=== PATIENT | male | born 1925 | race Caucasian/White ===

== ENCOUNTER → 2017-03-18 | Outpatient (CLI) | payer MEDICARE, BC ==
--- NOTE | 2017-03-18 11:59 | CT ---
EXAMINATION TYPE: CT chest wo con DATE OF EXAM: 03/18/2017 COMPARISON: Radiograph 03/05/2017 HISTORY: 89-year-old male Cough, Shortness of breath TECHNIQUE: Contiguous axial scanning of the chest without IV contrast. Coronal and sagittal reconstru ctions performed. CT DLP: 203.40 mGycm Automated exposure control for dose reduction was used. FINDINGS: The heart is upper limits of size without pericardial effusion. Dense mitral annular calcifications a re present. Coronary vessel calcifications are present in remarkable for coronary artery disease. 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 Large caliber to the main right and left pulmonary arteries 3.3 and 2.7 cm, respectively, suggesting underlying pulmonary arterial hypertension. No thoracic lymphadenopathy by CT size criteria. Some calcified mediastinal lymph nodes suggest prior granulomatous disease. There are small pleural effusions with some interstitial changes in the lower lungs and to a greater extent within the upper lungs with hazy groundglass densities as well. Mild underlying centrilobular emphysema particularly in the upper lungs. Visualized upper abdomen shows cholelithiasis and moderate atherosclerotic calcifications in the aort a. Bones: No osseous destructive process. IMPRESSION: 1. 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 1. BORDERLINE HEART SIZE, SMALL EFFUSIONS, AND INTERSTITIAL DENSITIES IN THE UPPER AND LOWER LUNGS. C ORRELATE TO EXCLUDE MILD CHF. 3. HAZY DENSITIES ARE SLIGHTLY MORE CONFLUENT IN CERTAIN REGIONS SUCH THE RIGHT UPPER LOBE AND LEFT BASE, CORRELATE TO EXCLUDE THE POSSIBILITY OF SUPERIMPOSED PNEUMONIA. 4. CHOLELITHIASIS.
== END | disposition home or self-care (01) ==
LOC: RADCTMAIN 10:59
PROVIDERS: ATTEND Internal Medicine
DX: J43.9 Emphysema, unspecified (principal); J98.4 Other disorders of lung; I27.21 Secondary pulmonary arterial hypertension
CPT/HCPCS: 71250

== ENCOUNTER → 2017-03-22 | Outpatient (CLI) | payer MEDICARE, BC ==
--- NOTE | 2017-03-22 10:07 | XR ---
EXAMINATION TYPE: XR chest 2V DATE OF EXAM: 03/22/2017 COMPARISON: CT 03/18/2017 HISTORY: 89-year-old male with cough and congestion TECHNIQUE: Frontal and lateral views FINDINGS: The heart is borderline enlarged. Aorta within normal limits. There is a staple line projecting along the anterior right lower lung from prior wedge resection. Some patchy opacity could represent scar o r atelectasis peripheral right upper mid lung. There is are trace effusions, left greater than right and patchy peripheral left basilar opacity. Hyperinflation with flattening of the hemidiaphragms. IMPRESSION: 1. COPD and prior wedge resection along the anterior lower right lung. 2. Borderline heart size with trace effusions. Correlate to exclude mild CHF. 3. Patchy atelectasis or infiltrate at the left base. Correlate for any infectious signs/symptoms.
== END | disposition home or self-care (01) ==
LOC: RADXRMAIN 09:32
PROVIDERS: ATTEND Internal Medicine Pulmonary Disease
DX: J44.9 Chronic obstructive pulmonary disease, unspecified (principal); Z98.890 Other specified postprocedural states
CPT/HCPCS: 71020

== ENCOUNTER 2017-03-29 08:43 | Day surgery (SDC) | payer MEDICARE ==
[2017-03-29 09:30] VITALS: RESP 16; TEMP 97
[2017-03-29 09:33] LABS: Mean Platelet Volume 7.8
[2017-03-29 09:50] LABS: INR 1.1 (<1.2); Partial Thromboplastin Time 24.6 sec (22.0-30.0); Prothrombin Time 10.8 sec (9.0-12.0)
--- NOTE | 2017-03-29 10:48 | XR ---
EXAMINATION TYPE: XR chest 1V DATE OF EXAM: 03/29/2017 COMPARISON: Prior chest x-ray 03/22/2017 HISTORY: Status post right thoracentesis TECHNIQUE: Single frontal view of the chest is obtained. FINDINGS: There is no pneumothorax or sizable effusion. Persistent blunting the left costophrenic an gle. The heart remains enlarged. Postop changes noted to the right lung. IMPRESSION: No evident complication status post right thoracentesis.
[2017-03-29 11:13] VITALS: BP 99/51; PULSE 49
--- NOTE | 2017-03-29 12:27 | US ---
EXAMINATION TYPE: US thoracentesis DATE OF EXAM: 03/29/2017 COMPARISON: NONE HISTORY: Pleural effusion. FINDINGS: Maximal barrier technique was utilized. The skin overlying a suitable pocket of fluid was localized and the overlying skin prepped and draped. Lidocaine was used for local anesthesia. Ultras ound was used with sterile technique. A 5 [place] catheter over guide needle was advanced into the pl eural fluid collection using ultrasound guidance and the catheter advanced, needle removed. Approxim ately 0.6 liter(s) of serous fluid was removed. Catheter was withdrawn and hemostasis achieved. The re is no immediate complication. The patient discharged in stable condition without complication. IMPRESSION: STATUS POST ULTRASOUND GUIDED THORACENTESIS, POST PROCEDURE CHEST X-RAY PENDING. THIS [place] OCEDURE WAS PERFORMED BY THE UNDERSIGNED. Specimen sent for laboratory analysis.
== END 2017-03-29 11:00 | disposition home or self-care (01) ==
LOC: RADPROMAIN 08:43
PROVIDERS: ATTEND Internal Medicine
DX: J90 Pleural effusion, not elsewhere classified (principal)
CPT/HCPCS: 32555; 36415; 71010; 85049; 85610; 85730